=== PATIENT | male | born 1955 | race Two or more races ===

== ENCOUNTER 2017-12-24 07:24 | Day surgery (SDC) | payer OTHER ==
[~2017-12-24 07:24] MED LIST: CELEBREX200MG PO
== END 2017-12-24 19:35 | disposition home or self-care (01) ==
LOC: CIR.AMB 07:24
DX: M19.041 Primary osteoarthritis, right hand (principal)

== ENCOUNTER 2024-01-14 10:30 | Inpatient (IN) | payer OTHER ==
[~2024-01-14] VITALS: Ht 180.3 cm; Wt 49.9 kg
[2024-01-14 12:42] LABS: HEMATOCRIT 44.9 % (39.0-48.0); HEMOGLOBIN 15.1 g/dL (13-16.00); MEAN CELL VOLUME 89.5 fL (80.0-100.00); MEAN CORPUSCULAR HGB CONC 33.6 g/dl (32.0-36.0); PLATELET COUNT 237 K/uL (150-450); RED BLOOD COUNT 5.02 M/uL (4.00-6.00); RED CELL DISTRIBUTION WIDTH 16.3 % (11.5-14.5)
[2024-01-14 12:44] LABS: PH,URINE 5.5 (5.0-8.0); URINE APPEARANCE Clear; URINE BILIRRUBIN Negative (NEGATIVE); URINE BLOOD Trace; URINE COLOR Yellow; URINE GLUCOSE Negative (NEGATIVE); URINE LEUKOCYTE Negative; URINE NITRATE Negative; URINE PROTEIN Trace (NEGATIVE); URINE UROBILINOGEN 0.2 E.U./dl
[2024-01-14 12:45] LABS: URINE BACTERIA 8.8 uL (0.0-1933); URINE EPITHELIAL CELLS 2.4 uL (0.0-38.8); URINE RBC 5.1 uL (0.0-20.8); URINE WBC 3.5 uL (0.0-23.2)
[2024-01-14] MEDS ORDERED: LOSARTAN POTAS100 MG PO (12:52)
[2024-01-14] MEDS ORDERED: CATAFLAN (12:53)
[2024-01-14 13:09] LABS: PARTIAL THROMBOPLASTIN TIME 27.6 SECONDS (22.0-34.0); PROTHROMBIN TIME 10.5 SECONDS (9.0-11.5)
[2024-01-14 13:14] LABS: ALBUMIN 3.8 gm/dL (3.4-5.0); BILIRUBIN TOTAL 0.35 mg/dL (0.3-1.2); CALCIUM 9.9 mg/dL (8.5-10.1); CREATININE SERUM 0.98 mg/dL (0.70-1.30); GFR 76.06; POTASSIUM 4.07 mEq/L (3.5-5.1); TOTAL PROTEIN 7.8 gm/dL (6.4-8.2)
[2024-01-21] MEDS ORDERED: CEFAZOLIN SODIUM 1,000 MG VIAL IV ONE (08:00)
[2024-01-21] MEDS ORDERED: BUPIVACAINE HCL/PF 0.25% 50 ML VIAL IJ ONE (08:00)
[2024-01-21] MEDS ORDERED: KETOROLAC TROMETHAMINE 60 MG VIAL IM ONE (08:00)
[2024-01-21] MEDS ORDERED: LIDOCAINE HCL 1%/EPINEPHRINE 20ML VIAL IJ ONE (08:00)
[2024-01-21] MEDS ORDERED: ISOPROPYL ALCOHOL 30 ML OUNCE TOP ONE (08:00)
[2024-01-21] MEDS ORDERED: TRANEXAMIC ACID 100MG/1ML (1000MG) AMPUL IV ONE ×2 (08:00)
[2024-01-21] MEDS ORDERED: POVIDONE-IODINE 3 EA MED..SWAB TOP ONE (08:00)
[2024-01-21] MEDS ORDERED: MORPHINE SULFATE 4 MG/ML VIAL IV ONE (08:00)
[2024-01-21] MEDS ORDERED: SODIUM CHLORIDE 0.45 % 1,000 ML IV SCH (08:30)
[2024-01-21] MEDS ORDERED: OxyCODONE HCL 5 MG TABLET (ROXICODONE) PO PRN (08:30)
[2024-01-21] MEDS ORDERED: ONDANSETRON HCL 2 MG/ML VIAL IV PRN (08:30)
[2024-01-21] MEDS ORDERED: MORPHINE SULFATE 4 MG/ML CARTRIDGE IV PRN (08:30)
[2024-01-21] MEDS ORDERED: CEFAZOLIN SODIUM 1,000 MG VIAL IV SCH (09:00)
[2024-01-21] MEDS ORDERED: GABAPENTIN 300 MG CAPSULE PO SCH (09:00)
[2024-01-21] MEDS ORDERED: ACETAMINOPHEN 500 MG GEL..CAP PO SCH (12:00)
[2024-01-21] MEDS ORDERED: ENALAPRILAT DIHYDRATE 1.25 MG/ML VIAL IV PRN (15:00)
[2024-01-22 05:55] LABS: HEMATOCRIT 39.2 % (39.0-48.0); HEMOGLOBIN 13.4 g/dL (13-16.00); MEAN CELL VOLUME 88.3 fL (80.0-100.00); MEAN CORPUSCULAR HEMOGLOBIN 30.3 pg (27.00-32.0); MEAN CORPUSCULAR HGB CONC 34.3 g/dl (32.0-36.0); PLATELET COUNT 214 K/uL (150-450); RED BLOOD COUNT 4.44 M/uL (4.00-6.00); RED CELL DISTRIBUTION WIDTH 14.8 % (11.5-14.5)
[2024-01-22] MEDS ORDERED: PERCOCET 5-3251 EACH PO (08:22)
[2024-01-22] MEDS ORDERED: ELIQUIS2.5 MG PO (08:22)
[2024-01-22] MEDS ORDERED: DUI500 PO (08:22)
[2024-01-22] MEDS ORDERED: SENNOSIDES 1 TAB TABLET PO SCH (09:00)
[2024-01-22] MEDS ORDERED: LOSARTAN POTASSIUM 100 MG TABLET PO SCH (09:00)
[2024-01-22] MEDS ORDERED: IRON FUM,PS/FOLIC ACID/VITC/B3 1 CAP CAPSULE PO SCH (09:00)
[2024-01-22] MEDS ORDERED: APIXABAN 2.5 MG TABLET PO SCH (09:00)
[2024-01-22] MEDS ORDERED: hydrALAZINE HCL 20 MG VIAL IV PRN (13:00)
[2024-01-22] MEDS ORDERED: Cyanocobalamin/Mecobalamin 1 TAB.SL SL SCH (17:00)
[2024-01-22] MEDS ORDERED: THIAMINE HCL 100 MG TABLET PO SCH (17:00)
[2024-01-22] MEDS ORDERED: VITAMIN B COMPLEX 1 EACH PO SCH (17:00)
[2024-01-23 07:19] LABS: HEMATOCRIT 36.3 % (39.0-48.0); HEMOGLOBIN 12.3 g/dL (13-16.00); MEAN CELL VOLUME 89.8 fL (80.0-100.00); MEAN CORPUSCULAR HEMOGLOBIN 30.3 pg (27.00-32.0); MEAN CORPUSCULAR HGB CONC 33.7 g/dl (32.0-36.0); PLATELET COUNT 220 K/uL (150-450); RED BLOOD COUNT 4.05 M/uL (4.00-6.00); RED CELL DISTRIBUTION WIDTH 14.5 % (11.5-14.5)
== END 2024-01-23 17:06 | DRG 470 ==
LOC: O/R 01-21 05:24 → SURH 01-21 07:00 → SURG 01-21 09:08 → SURH 01-21 10:30 → SURG 01-23 17:06
PROVIDERS: ADMIT Orthopaedic Surgery; ATTEND Orthopaedic Surgery
PROC: 0MNN0ZZ Release Right Knee Bursa and Ligament, Open Approach (ICD-10-PCS; 2024-01-21)
PROC: 0SUC07Z Supplement Right Knee Joint with Autologous Tissue Substitute, Open Approach (ICD-10-PCS; 2024-01-21)
PROC: 0SRC0J9 Replacement of Right Knee Joint with Synthetic Substitute, Cemented, Open Approach (ICD-10-PCS; principal; 2024-01-21 07:00)
DX: M17.11 Unilateral primary osteoarthritis, right knee (principal); D62 Acute posthemorrhagic anemia; M22.11 Recurrent subluxation of patella, right knee